=== PATIENT | male | born 1975 | race Caucasian/White ===

== ENCOUNTER 2025-04-03 07:40 | Inpatient (IN) | payer MEDICAID ==
[~2025-04-03] VITALS: Ht 160 cm; Wt 86.0 kg
[2025-04-03 07:45] VITALS: O2SAT 99
[2025-04-03 08:21] LABS: BASOPHILS % 0.7 % (0.0-2.0); EOSINOPHILS % 3.0 % (0.0-5.0); HEMATOCRIT. 47.2 % (42.0-52.0); HEMOGLOBIN. 15.8 g/dL (14.0-18.0); LYMPHOCYTES % 47.3 % (20.0-50.0); MEAN PLATELET VOLUME 8.3 fl (7.4-10.4); MONOCYTES % 5.5 % (2.0-8.0); NEUTROPHILS % 43.5 % (40.0-76.0); PLATELET 257 x1000/uL (130-400); RED BLOOD CELL COUNT 5.49 mill/uL (4.7-6.1); RED CELL DISTRIBUTION WIDTH 13.7 % (11.6-14.6)
[2025-04-03] MEDS: MORPHINE SULFATE 4 MG/ML INJ (FOR IV/IM USE) IV ONE ×2 (08:29→09:39)
[2025-04-03 08:36] LABS: CREATININE 1.1 mg/dL (0.6-1.3); UREA NITROGEN BLOOD 11 mg/dL (9-23)
[2025-04-03 08:38] LABS: ASPARTATE AMINOTRANSFERASE 35 IU/L (<34); BILIRUBIN DIRECT 0.4 mg/dL (<=3.0); BILIRUBIN TOTAL 1.6 mg/dL (0.1-1.0); PROTEIN TOTAL 7.6 g/dL (6.0-8.3)
[2025-04-03] MEDS ORDERED: GUAIFENESIN 200MG/10ML SUGAR FREE UDC PO PRN (11:15)
[2025-04-03] MEDS ORDERED: IPRATROPIUM/ALBUTEROL 0.5-3(2.5)MG/3ML NEB HHN PRN (11:15)
[2025-04-03] MEDS ORDERED: ONDANSETRON HCL 4MG/2ML INJ IV PRN (11:15)
[2025-04-03] MEDS ORDERED: HYDROCODONE/ACETAMINOPHEN 5/325MG TABLET PO PRN (11:15)
[2025-04-03] MEDS ORDERED: CLONIDINE 0.1MG TABLET PO PRN (11:15)
[2025-04-03] MEDS ORDERED: DOCUSATE SODIUM 100MG CAPSULE PO PRN (11:15)
[2025-04-03] MEDS ORDERED: ACETAMINOPHEN 325MG TABLET PO PRN ×2 (11:15)
[2025-04-03] MEDS ORDERED: NALOXONE HCL 0.4MG/ML VIAL IV PRN (11:45)
[2025-04-03 11:52] VITALS: BP 139/79; PULSE 61; RESP 18; TEMP 37.0296
[2025-04-03 12:00] VITALS: BP 139/86; PULSE 68; RESP 16; TEMP 37.1; O2SAT 99
[2025-04-03] MEDS: KETOROLAC 15MG/ML VIAL IV PRN (12:53)
[2025-04-03] MEDS: SODIUM CHLORIDE 0.9% 1,000 ML IV SCH (14:27)
[2025-04-03 15:32] LABS: CLARITY URINE CLOUDY (CLEAR); COLOR URINE DARK YELLOW (YELLOW); GLUCOSE URINE NEGATIVE (NEGATIVE); KETONES URINE 1+ (NEGATIVE); LEUKOCYTE ESTERASE URINE TRACE (NEGATIVE); NITRITE URINE NEGATIVE (NEGATIVE); OCCULT BLOOD URINE 3+ (NEGATIVE); PH URINE 6.0 (4.5-8.0); PROTEIN URINE 2+ (NEGATIVE); SPECIFIC GRAVITY URINE 1.030 (1.005-1.030); UROBILINOGEN URINE 1.0 E.U./dL (0.2-1.0)
[2025-04-03 15:36] LABS: *AMPHETAMINES SCREEN URINE NEGATIVE (NEGATIVE); *BARBITURATES SCREEN URINE NEGATIVE (NEGATIVE); *BENZODIAZEPINES SCREEN URINE NEGATIVE (NEGATIVE); *COCAINE SCREEN URINE NEGATIVE (NEGATIVE); CANNABINOID URINE SCREEN NEGATIVE (NEGATIVE); ECSTASY MDMA SCREEN URINE NEGATIVE (NEGATIVE); METHADONE URINE SCREEN NEGATIVE (NEGATIVE); OPIATES URINE SCREEN PRESUMPTIVE POSITIVE (NEGATIVE); PHENCYCLIDINE URINE SCREEN NEGATIVE (NEGATIVE)
[2025-04-03 15:56] LABS: SQUAMOUS EPITHELIAL CELL URINE 1+ /lpf (RARE/1+)
[2025-04-03 15:58] LABS: BACTERIA URINE 1+
[2025-04-03 16:00] VITALS: BP 122/81; PULSE 73; RESP 18; TEMP 36.5; O2SAT 97
[2025-04-03] MEDS: ENOXAPARIN 40MG/0.4ML SYR SUBCUT SCH (17:10)
[2025-04-03] MEDS: PANTOPRAZOLE SODIUM 40 MG/VIAL IV SCH (17:10)
[2025-04-03] MEDS: CEFTRIAXONE 1GM/50ML 50 ML IV SCH (17:35)
[2025-04-03 20:00] VITALS: BP 116/80; PULSE 73; RESP 20; TEMP 36.6; O2SAT 98
[2025-04-03 20:07] LABS: PHOSPHORUS 2.2 mg/dL (2.5-4.9)
[2025-04-04] VITALS: BP 101/67; PULSE 73; RESP 20; TEMP 36.6; O2SAT 99
[2025-04-04 04:00] VITALS: BP 115/74; PULSE 69; RESP 20; TEMP 37; O2SAT 97
[2025-04-04 06:32] LABS: BASOPHILS % 0.2 % (0.0-2.0); EOSINOPHILS % 2.0 % (0.0-5.0); HEMATOCRIT. 44.1 % (42.0-52.0); HEMOGLOBIN. 14.6 g/dL (14.0-18.0); LYMPHOCYTES % 31.4 % (20.0-50.0); MEAN PLATELET VOLUME 8.4 fl (7.4-10.4); MONOCYTES % 6.4 % (2.0-8.0); NEUTROPHILS % 60.0 % (40.0-76.0); PLATELET 231 x1000/uL (130-400); RED BLOOD CELL COUNT 5.11 mill/uL (4.7-6.1); RED CELL DISTRIBUTION WIDTH 13.9 % (11.6-14.6)
[2025-04-04 06:43] LABS: CREATININE 0.8 mg/dL (0.6-1.3); TRIGLYCERIDE 149 mg/dL (0-150)
[2025-04-04 06:44] LABS: LDL CHOLESTEROL 145 mg/dL (5-100); UREA NITROGEN BLOOD 10 mg/dL (9-23)
[2025-04-04 06:45] LABS: T4 FREE 1.23 ng/dL (0.89-1.76)
[2025-04-04 08:00] VITALS: BP 121/76; PULSE 70; RESP 18; TEMP 35.9; O2SAT 100
[2025-04-04 12:00] VITALS: BP 145/101; PULSE 72; RESP 19; TEMP 35.8; O2SAT 100
[2025-04-04] MEDS: DOCUSATE SODIUM SUGAR FREE 100MG/10ML UDC PO PRN (15:06)
[2025-04-04 20:00] VITALS: BP 132/78; PULSE 73; RESP 18; TEMP 35.6; O2SAT 97
[2025-04-05 08:00] VITALS: BP 124/80; PULSE 74; RESP 18; TEMP 36.2; O2SAT 96
[2025-04-05] MEDS ORDERED: IBUP-2028 MT ×2 (09:02→12:31)
[2025-04-05 11:27] VITALS: BP 124/80; PULSE 74; RESP 18; TEMP 97
[2025-04-05 12:00] VITALS: BP 118/78; PULSE 69; RESP 18; TEMP 36.2; O2SAT 96
== END 2025-04-05 13:55 | disposition home or self-care (01) | DRG 463 ==
LOC: ER 07:40 → 6EST 10:44 → EDBEDREQ 10:46 → EDBEDREQTM 10:46 → ENRESERV 11:12
PROVIDERS: ADMIT Internal Medicine; ATTEND Internal Medicine
DX: N39.0 Urinary tract infection, site not specified (principal); N20.1 Calculus of ureter; K76.0 Fatty (change of) liver, not elsewhere classified; N23 Unspecified renal colic; Z79.899 Other long term (current) drug therapy
CPT/HCPCS: 36415; 71045; 74176; 80048; 80061; 80076; 80305; 81003; 83735; 84100; 84439; 84443; 85025; 96374; 96376; 99285; A4606; J0696; J1650; J1885; J2270; J2470; J7030